=== PATIENT | male | born 1950 | race Two or more races ===

== ENCOUNTER → 2024-11-04 07:12 | Outpatient (CLI) | payer OTHER ==
[~2024-11-04 07:12] MED LIST: PERCOCET 5/3251 TAB PO; XARELTO 10MG PO
== END | disposition home or self-care (01) ==
LOC: NUCLEAR 07:00
PROVIDERS: ATTEND Internal Medicine Cardiovascular Disease
DX: I50.22 Chronic systolic (congestive) heart failure (principal)
CPT/HCPCS: 78472; A9560